=== PATIENT | female | born 1970 | race Hispanic/Latino ===

== ENCOUNTER 2020-09-28 12:27 | Outpatient (CLI) | payer OTHER ==
--- NOTE | 2020-09-28 13:38 | XRay Report ---
CHEST 2 VIEWS INDICATION / CLINICAL INFORMATION: Chest pain.. COMPARISON: None available. FINDINGS: SUPPORT DEVICES: None. HEART / MEDIASTINUM: No significant abnormality. LUNGS / PLEURA: No significant pulmonary or pleural abnormality. No pneumothorax. ADDITIONAL FINDINGS: No significant additional findings. IMPRESSION: 1. No acute findings. Signer Name: John Carrillo MD Signed: 09/28/2020 1:33 PM Workstation Name: [id number]
--- NOTE | 2020-09-28 13:42 | XRay Report ---
BILATERAL FEET, 3 views HISTORY: Foot pain bilaterally. COMPARISON: None. TECHNIQUE: 3 views of both feet were obtained. FINDINGS: Bones: No fracture or dislocation. Joint spaces: Maintained. Soft tissues: No significant abnormality. Additional findings: None. IMPRESSION: Unremarkable radiographs of the bilateral feet. No acute osseous abnormality or significant degenerat gentry change. No findings to explain patient's reported bilateral foot pain. Signer Name: John Carrillo MD Signed: 09/28/2020 1:37 PM Workstation Name: [id number]
--- NOTE | 2020-09-28 14:14 | XRay Report ---
BILATERAL HANDS HISTORY: Bilateral hand pain. COMPARISON: None. TECHNIQUE: 3 views of both hands were obtained. FINDINGS: Bones: No acute fracture or dislocation. Mild periarticular osteopenia is noted. Joint spaces: Maintained. Soft tissues: No significant abnormality. Additional findings: None. IMPRESSION: No evidence of acute osseous injury within the bilateral hands. There is mild periarticular osteopenia. This is a nonspecific finding, but can be seen in the setting of arthritis, such as rheumatoid. Signer Name: John Carrillo MD Signed: 09/28/2020 2:10 PM Workstation Name: [id number]
--- NOTE | 2020-09-28 14:35 | XRay Report ---
BILATERAL WRISTS HISTORY: BILATERAL WRIST PAIN COMPARISON: None. TECHNIQUE: 4 views of both wrists were obtained. FINDINGS: Bones: No fracture or dislocation. Joint spaces: Maintained. Soft tissues: No significant abnormality. Additional findings: None. IMPRESSION: No evidence of acute osseous injury or significant degenerative change. Signer Name: John Carrillo MD Signed: 09/28/2020 2:30 PM Workstation Name: [id number]
== END 2020-09-28 12:28 | disposition home or self-care (01) ==
LOC: XRAY 12:27
PROVIDERS: ATTEND Internal Medicine
DX: M85.842 Other specified disorders of bone density and structure, left hand (principal); M85.841 Other specified disorders of bone density and structure, right hand; M25.532 Pain in left wrist; R07.9 Chest pain, unspecified; M25.531 Pain in right wrist; M25.571 Pain in right ankle and joints of right foot; M25.572 Pain in left ankle and joints of left foot
CPT/HCPCS: 71046